=== PATIENT | female | born 1995 | race Caucasian/White ===

== ENCOUNTER 2023-04-11 16:26 | Inpatient (IN) | payer OTHER ==
[2023-04-11 18:03] VITALS: BMI 32.9
[2023-04-11] MEDS ORDERED: BENZOCAINE/MENTHOL (CHLORASEPTIC ) LOZENGE MM PRN (19:05)
[2023-04-11] MEDS ORDERED: P-EPHED 60MG/TRIPROLIDI 2.5MG TABLET PO PRN (19:05)
[2023-04-11] MEDS ORDERED: BISMUTH SUBSALICYLATE 524 MG/30 ML PO PRN (19:05)
[2023-04-11] MEDS ORDERED: MAG HYDROX/AL HYDROX/SIMETH 30 ML UNIT-DOSE CUP PO PRN (19:05)
[2023-04-11] MEDS ORDERED: ALBUTEROL SO4 2.5/IPRATROPIUM 0.5 INH SOL 3 ML VIAL.NEB. NEB ONE (19:05)
[2023-04-11] MEDS ORDERED: IBUPROFEN 400 MG TABLET (FP) PO PRN (19:05)
[2023-04-11] MEDS ORDERED: LOPERAMIDE HCL 2 MG CAPSULE PO PRN (19:05)
[2023-04-11] MEDS ORDERED: hydrOXYzine PAMOATE 25 MG CAPSULE (FP) PO PRN (19:05)
[2023-04-11] MEDS ORDERED: guaiFENesin 600 MG TABLET.ER (FP) PO PRN (19:05)
[2023-04-11] MEDS ORDERED: ACETAMINOPHEN 325 MG TABLET (FP) PO PRN (19:05)
[2023-04-11] MEDS ORDERED: POLYETHYLENE GLYCOL (HEALTHYLAX) 3350 17 GM PACKET PO PRN (19:05)
[2023-04-11] MEDS ORDERED: NALOXONE HCL (KLOXXADO) 8 MG SPRAY NS PRN (19:05)
[2023-04-11] MEDS ORDERED: IBUPROFEN 600 MG TABLET (FP) PO PRN (19:05)
[2023-04-11] MEDS ORDERED: MAGNESIUM HYDROX 2400MG/30ML ORAL SUSPENSION 30 ML CUP PO PRN (19:05)
[2023-04-11] MEDS ORDERED: ONDANSETRON *ODT* 4 MG TABLET SL PRN (19:05)
[2023-04-11] MEDS ORDERED: DICYCLOMINE HCL 10 MG CAPSULE PO PRN (19:05)
[2023-04-11] MEDS ORDERED: BENZONATATE 200 MG CAPSULE PO PRN (19:05)
[2023-04-11] MEDS ORDERED: NALOXONE HCL 0.4 MG/ML VIAL IM PRN (19:05)
[2023-04-11] MEDS: THIAMINE HCL 100 MG TABLET (FP) PO SCH ×2 (22:24→22:28)
[2023-04-11] MEDS: METHOCARBAMOL 500 MG TABLET PO PRN (22:24)
[2023-04-11] MEDS ORDERED: methaDONE HCL 10 MG TABLET (FOR DETOX USE ONLY) PO ONE (22:57)
[2023-04-11] MEDS ORDERED: cloNIDine HCL 0.1 MG TABLET PO PRN (22:57)
[2023-04-12] MEDS ORDERED: methaDONE HCL 10 MG TABLET (FOR DETOX USE ONLY) PO ONE (10:00)
[2023-04-12] MEDS: PRENATAL VITAMINS W/ FOLIC ACID TABLET (FP) PO SCH (10:42)
[2023-04-12 11:11] LABS: HEMATOCRIT 30.2 % (32.4-45.2); HEMOGLOBIN 8.6 GM/dL (10.7-15.3); MCH 20.3 pg (25.7-33.7); MCHC 28.4 g/dl (32.0-36.0); MEAN CELL VOLUME 71.4 fl (80-96); MEAN PLT VOLUME 7.3 fl (7.5-11.1); PLATELET COUNT 390 10^3/uL (134-434); RBC 4.23 M/mm3 (3.60-5.2); RDW 19.7 % (11.6-15.6); WHITE BLOOD COUNT 7.6 K/mm3 (4.0-10.0)
[2023-04-12 11:18] LABS: CHLORIDE 106 mmol/L (98-107); POTASSIUM 3.8 mmol/L (3.5-5.1); SODIUM 140 mmol/L (136-145)
[2023-04-12 11:43] LABS: ANION GAP 5 mmol/L (4-13); BLOOD UREA NITROGEN 12.4 mg/dL (7-18); CO2 28 mmol/L (21-32); GLUCOSE,RANDOM 90 mg/dL (74-106)
[2023-04-12 11:46] LABS: CREATININE 0.6 mg/dL (0.55-1.3)
[2023-04-12 11:47] LABS: ALBUMIN 3.3 g/dl (3.4-5.0)
[2023-04-12 11:49] LABS: ALK PHOS 73 U/L (45-117)
[2023-04-12 11:50] LABS: SGPT/ALT 15 U/L (13-61)
[2023-04-12 11:51] LABS: SGOT/AST 15 U/L (15-37)
[2023-04-12 11:52] LABS: BILIRUBIN,TOTAL 0.3 mg/dL (0.2-1)
[2023-04-12] MEDS ORDERED: ALBUTEROL SO4 0.083% IH SOL 2.5 MG/3 ML VIAL.NEB. NEB PRN (13:09)
[2023-04-12] MEDS: METHOCARBAMOL 500 MG TABLET PO PRN (18:31)
[2023-04-12] MEDS: THIAMINE HCL 100 MG TABLET (FP) PO SCH (21:50)
[2023-04-12] MEDS: SUVOREXANT 10 MG TABLET PO PRN (21:54)
[2023-04-13] MEDS ORDERED: methaDONE HCL 10 MG TABLET (FOR DETOX USE ONLY) PO ONE ×2 (10:00→10:56)
[2023-04-13] MEDS: FERROUS SO4 325 MG TABLET (FP) PO SCH (10:45)
[2023-04-13] MEDS: PRENATAL VITAMINS W/ FOLIC ACID TABLET (FP) PO SCH (10:45)
[2023-04-13] MEDS: METHOCARBAMOL 500 MG TABLET PO PRN ×2 (11:23→18:39)
[2023-04-13] MEDS: SUVOREXANT 10 MG TABLET PO PRN (22:20)
[2023-04-13] MEDS: hydrOXYzine PAMOATE 25 MG CAPSULE (FP) PO PRN (22:21)
[2023-04-13] MEDS: THIAMINE HCL 100 MG TABLET (FP) PO SCH (22:21)
[2023-04-14] MEDS ORDERED: methaDONE HCL 10 MG TABLET (FOR DETOX USE ONLY) PO ONE (10:00)
[2023-04-14] MEDS: PRENATAL VITAMINS W/ FOLIC ACID TABLET (FP) PO SCH (10:41)
[2023-04-14] MEDS: FERROUS SO4 325 MG TABLET (FP) PO SCH (10:42)
[2023-04-14] MEDS ORDERED: hydrOXYzine PAMOATE 25 MG CAPSULE (FP) PO PRN (12:02)
[2023-04-14] MEDS ORDERED: SUVOREXANT 15 MG TABLET PO PRN (22:00)
[2023-04-14] MEDS: METHOCARBAMOL 500 MG TABLET PO PRN (22:16)
[2023-04-14] MEDS: THIAMINE HCL 100 MG TABLET (FP) PO SCH (22:16)
[2023-04-14] MEDS: hydrOXYzine PAMOATE 25 MG CAPSULE (FP) PO PRN (22:17)
[2023-04-15] MEDS: FERROUS SO4 325 MG TABLET (FP) PO SCH (09:12)
[2023-04-15] MEDS: PRENATAL VITAMINS W/ FOLIC ACID TABLET (FP) PO SCH (09:12)
[2023-04-15 09:51] VITALS: BP 108/80; PULSE 110; RESP 17; TEMP 96.9
[2023-04-15] MEDS ORDERED: methaDONE HCL 10 MG TABLET (FOR DETOX USE ONLY) PO ONE (10:00)
== END 2023-04-15 11:15 | disposition home or self-care (01) | DRG 773 ==
LOC: YASAS 16:26 → Y6N 19:12
PROVIDERS: ADMIT Allergy & Immunology; ATTEND Surgery
PROC: HZ2ZZZZ Detoxification Services for Substance Abuse Treatment (ICD-10-PCS; principal; 2023-04-11)
DX: F11.23 Opioid dependence with withdrawal (principal); F19.282 Other psychoactive substance dependence with psychoactive substance-induced sleep disorder; F19.280 Other psychoactive substance dependence with psychoactive substance-induced anxiety disorder; F19.24 Other psychoactive substance dependence with psychoactive substance-induced mood disorder; F43.10 Post-traumatic stress disorder, unspecified; F63.9 Impulse disorder, unspecified; D64.9 Anemia, unspecified; J45.30 Mild persistent asthma, uncomplicated; Z98.84 Bariatric surgery status
CPT/HCPCS: 36415; 71046-TC-FY; 80053; 80307; 81025; 85027; 86780; 87635; 93005; 93010; 94640

== ENCOUNTER 2023-09-17 17:04 | Inpatient (IN) | payer OTHER ==
[2023-09-17 17:34] VITALS: BMI 30.7
[2023-09-17] MEDS ORDERED: guaiFENesin 600 MG TABLET.ER (FP) PO PRN (19:27)
[2023-09-17] MEDS ORDERED: ONDANSETRON *ODT* 4 MG TABLET SL PRN (19:27)
[2023-09-17] MEDS ORDERED: IBUPROFEN 600 MG TABLET (FP) PO PRN (19:27)
[2023-09-17] MEDS ORDERED: DICYCLOMINE HCL 10 MG CAPSULE PO PRN (19:27)
[2023-09-17] MEDS ORDERED: MAG HYDROX/AL HYDROX/SIMETH 30 ML UNIT-DOSE CUP PO PRN (19:27)
[2023-09-17] MEDS ORDERED: NALOXONE HCL (KLOXXADO) 8 MG SPRAY NS PRN (19:27)
[2023-09-17] MEDS ORDERED: BENZOCAINE/MENTHOL (CHLORASEPTIC ) LOZENGE MM PRN (19:27)
[2023-09-17] MEDS ORDERED: BISMUTH SUBSALICYLATE 524 MG/30 ML PO PRN (19:27)
[2023-09-17] MEDS ORDERED: MAGNESIUM HYDROX 2400MG/30ML ORAL SUSPENSION 30 ML CUP PO PRN (19:27)
[2023-09-17] MEDS ORDERED: POLYETHYLENE GLYCOL (HEALTHYLAX) 3350 17 GM PACKET PO PRN (19:27)
[2023-09-17] MEDS ORDERED: IBUPROFEN 400 MG TABLET (FP) PO PRN (19:27)
[2023-09-17] MEDS ORDERED: BENZONATATE 200 MG CAPSULE PO PRN (19:27)
[2023-09-17] MEDS ORDERED: LOPERAMIDE HCL 2 MG CAPSULE PO PRN (19:27)
[2023-09-17] MEDS ORDERED: NALOXONE HCL 0.4 MG/ML VIAL IM PRN (19:27)
[2023-09-17] MEDS ORDERED: methaDONE HCL 10 MG TABLET (FOR DETOX USE ONLY) ONE (19:53)
[2023-09-17] MEDS ORDERED: cloNIDine HCL 0.1 MG TABLET ONE (20:25)
[2023-09-17] MEDS ORDERED: hydrOXYzine PAMOATE 25 MG CAPSULE (FP) PO ONE (20:25)
[2023-09-17] MEDS ORDERED: MELATONIN 5 MG TABLETS ONE (20:29)
[2023-09-17] MEDS: MELATONIN 5 MG TABLETS PO ONE (20:37)
[2023-09-17] MEDS ORDERED: METHOCARBAMOL 500 MG TABLET ONE (20:39)
[2023-09-17] MEDS: cloNIDine HCL 0.1 MG TABLET PO PRN (20:40)
[2023-09-17] MEDS: hydrOXYzine PAMOATE 25 MG CAPSULE (FP) PO PRN (20:41)
[2023-09-17] MEDS: METHOCARBAMOL 500 MG TABLET PO PRN (20:41)
[2023-09-17] MEDS: MELATONIN 5 MG TABLETS PO SCH (22:30)
[2023-09-17] MEDS: THIAMINE 100 MG TABLET PO SCH (22:30)
[2023-09-17] MEDS: QUEtiapine FUMARATE 25 MG TABLET PO ONE (23:06)
[2023-09-18] MEDS: ACETAMINOPHEN 325 MG TABLET (FP) PO PRN (08:37)
[2023-09-18] MEDS: methaDONE HCL 10 MG TABLET (FOR DETOX USE ONLY) PO ONE (10:06)
[2023-09-18] MEDS: PRENATAL VITAMINS W/ FOLIC ACID TABLET (FP) PO SCH (10:22)
[2023-09-18 11:52] LABS: HEMATOCRIT 29.8 % (32.4-45.2); HEMOGLOBIN 8.5 GM/dL (10.7-15.3); MCHC 28.5 g/dl (32.0-36.0); MEAN CELL VOLUME 66.2 fl (80-96); MEAN PLT VOLUME 7.6 fl (7.5-11.1); PLATELET COUNT 400 10^3/uL (134-434); RBC 4.51 M/mm3 (3.60-5.2); RDW 18.2 % (11.6-15.6); WHITE BLOOD COUNT 7.3 K/mm3 (4.0-10.0)
[2023-09-18 11:53] LABS: MCH 18.9 pg (25.7-33.7)
[2023-09-18 11:57] LABS: CHLORIDE 109 mmol/L (98-107); POTASSIUM 4.3 mmol/L (3.5-5.1); SODIUM 141 mmol/L (136-145)
[2023-09-18 11:59] LABS: ALBUMIN 3.3 g/dl (3.4-5.0); ANION GAP 4 mmol/L (4-13); BLOOD UREA NITROGEN 11.1 mg/dL (7-18); CALCIUM 9.2 mg/dL (8.5-10.1); CO2 28 mmol/L (21-32); GLUCOSE,RANDOM 90 mg/dL (74-106)
[2023-09-18 12:01] LABS: SGPT/ALT 15 U/L (13-61)
[2023-09-18 12:03] LABS: CREATININE 0.6 mg/dL (0.55-1.3); SGOT/AST 16 U/L (15-37)
[2023-09-18 12:04] LABS: BILIRUBIN,TOTAL 0.3 mg/dL (0.2-1)
[2023-09-18 12:06] LABS: ALK PHOS 76 U/L (45-117)
[2023-09-18] MEDS ORDERED: ALBUTEROL SO4 HFA INHALER IH PRN (16:04)
[2023-09-18] MEDS: QUEtiapine FUMARATE 25 MG TABLET PO SCH (21:15)
[2023-09-19] MEDS: QUEtiapine FUMARATE 25 MG TABLET PO SCH (21:16)
[2023-09-20] MEDS: methaDONE HCL 10 MG TABLET (FOR DETOX USE ONLY) PO ONE (10:03)
[2023-09-20] MEDS: METHOCARBAMOL 750 MG TABLET PO PRN (17:10)
[2023-09-21 10:46] VITALS: BP 120/76; PULSE 97; RESP 18; TEMP 97.6
== END 2023-09-21 10:10 | disposition home or self-care (01) | DRG 773 ==
LOC: YASAS 17:04 → Y3N 20:05 → Y6N 09-20 14:01
PROVIDERS: ADMIT Allergy & Immunology; ATTEND Surgery
PROC: HZ2ZZZZ Detoxification Services for Substance Abuse Treatment (ICD-10-PCS; principal; 2023-09-17)
DX: F11.23 Opioid dependence with withdrawal (principal); F19.282 Other psychoactive substance dependence with psychoactive substance-induced sleep disorder; F41.9 Anxiety disorder, unspecified; D64.9 Anemia, unspecified; J45.20 Mild intermittent asthma, uncomplicated; Z98.84 Bariatric surgery status
CPT/HCPCS: 36415; 80053; 80307; 81025; 85027; 86780; 93005; 93010